=== PATIENT | male | born 1965 | race Caucasian/White ===

== ENCOUNTER 2019-06-28 05:41 | Inpatient (IN) | payer MEDICAID ==
[~2019-06-28] VITALS: Ht 172.7 cm; Wt 59.0 kg
--- NOTE | ~2019-06-28 | EKG ---
[facility] [address] [facility] [place], [place] [address] Draft EK completed, results pending confirmation PATIENT NAME: TRAUMA,XRAYONE Electrocardiogram DATE OF : [id number] PHYSICIAN: PRELIMINARY REPORT #: [id number] REPORT IS CONFIDENTIAL AND NOT TO BE RELEASED WITHOUT AUTHORIZATION
[2019-06-28] MEDS ORDERED: VENTOLIN HFA18 GM INH (06:14)
--- NOTE | 2019-06-28 21:34 | EKG ---
[facility] [address] [place] [address] Signed Sinus tachycardia Biatrial enlargement Right bundle branch block Left posterior fascicular block Bifascicular block Cannot rule out Anterior infarct , age undetermined Abnormal ECG When compared with ECG of 28-JUN-2019 06:14, (Unconfirmed) Previous ECG has undetermined rhythm, needs review (RBBB and left posterior fascicular block) has replaced Nonspecific intraventricular block Minimal criteria for Anterior infarct are now present Confirmed by ALISON LEBLANC MD ([id number]) on 06/28/2019 9:34:23 PM Electronically Signed By: ALISON LEBLANC MD 06/28/19 2134 PATIENT NAME: RACHEL COOK Electrocardiogram DATE OF : 63 PHYSICIAN: ALISON LEBLANC MD REPORT #: [id number] REPORT IS CONFIDENTIAL AND NOT TO BE RELEASED WITHOUT AUTHORIZATION
[2019-06-29] MEDS ORDERED: PROAIR HFA8.5 GM INH (12:29)
[2019-06-29] MEDS ORDERED: METHOCARBAMOL750 MG PO (12:30)
[2019-06-29] MEDS ORDERED: GABAPENTIN800 MG PO (12:30)
[2019-06-29] MEDS ORDERED: ALEVE220 MG PO (12:48)
[2019-06-29] MEDS ORDERED: GABAPENTIN300 MG PO (12:49)
[2019-07-03] MEDS ORDERED: IPRAT-ALBUT 0.5-3 ML INH (08:57)
[2019-07-03] MEDS ORDERED: PROAIR HFA8.5 GM INH (08:57)
[2019-07-03] MEDS ORDERED: NICOTINE PATCH1 EAC1 TD (08:58)
[2019-07-03] MEDS ORDERED: NICOTINE GUM2 MG MM (09:01)
[2019-07-03] MEDS ORDERED: VITAMIN B-1100 M1 PO (09:02)
[2019-07-03] MEDS ORDERED: PREDNISONE20 MG PO (09:06)
[2019-07-03] MEDS ORDERED: PREDNISONE5 MG PO (09:07)
[2019-07-03] MEDS ORDERED: PREDNISONE10 MG PO (09:07)
[2019-07-03] MEDS ORDERED: ADVAIR HFA 115-12 GM INH (09:09)
== END 2019-07-03 10:30 | disposition home or self-care (01) | DRG 208 ==
LOC: ED 05:41 → EDBD 05:42 → CCU 08:10 → MS 07-01 16:50
PROVIDERS: ADMIT Internal Medicine
PROC: 0BH17EZ Insertion of Endotracheal Airway into Trachea, Via Natural or Artificial Opening (ICD-10-PCS; principal; 2019-06-28)
PROC: 5A1945Z Respiratory Ventilation, 24-96 Consecutive Hours (ICD-10-PCS; 2019-06-28)
DX: J44.1 Chronic obstructive pulmonary disease with (acute) exacerbation (principal); J96.01 Acute respiratory failure with hypoxia; J96.02 Acute respiratory failure with hypercapnia; E87.1 Hypo-osmolality and hyponatremia; F10.239 Alcohol dependence with withdrawal, unspecified; F17.210 Nicotine dependence, cigarettes, uncomplicated; M54.5 Low back pain; G89.29 Other chronic pain; Z79.1 Long term (current) use of non-steroidal anti-inflammatories (NSAID); Z79.899 Other long term (current) drug therapy
CPT/HCPCS: 31500; 36415; 36600; 71045; 80048; 80053; 81001; 82803; 83735; 83880; 84100; 84484; 85025; 85379; 85610; 85730; 93005; 93010; 94003; 94640; 94645; 94660; 94760; 96374; 96375; 96376; 97116; 97162; 97165; 99285-25; C9113; J0330; J0696; J1650; J1885; J2250; J2560; J2704; J2930; J3010; J3360; J3411; J3475; J7060; J7121